=== PATIENT | male | born 1955 | race African-American/Black ===

== ENCOUNTER 2021-09-04 10:07 | Outpatient (REF) | payer OTHER, SELFPAY ==
[2021-09-04 12:56] LABS: Syphilis Screen Nonreactive (Nonreactive)
[2021-09-05 17:37] LABS: Lyme Abs Screen <0.90 index
== END 2021-09-04 10:08 | disposition home or self-care (01) ==
LOC: HO.LAB 10:07
PROVIDERS: PCP Internal Medicine; Visit Provider Psychiatry & Neurology Neurology
DX: M54.16 Radiculopathy, lumbar region (principal)
CPT/HCPCS: 36415; 86617; 86618; 86780

== ENCOUNTER 2021-09-07 08:58 | Day surgery (SDC) | payer OTHER, SELFPAY ==
[2021-09-07] VITALS (8 sets, daily range): BP systolic 131–145; BP diastolic 62–90; PULSE 75–91; RESP 15–16; TEMP 36.6–37; O2SAT 94–95; BMI 31.6
--- NOTE | ~2021-09-07 | FL_ITS ---
EXAMINATION: XR LUMBAR PUNCTURE CLINICAL INFORMATION: Lumbar diverticulitis. COMPARISON: None TECHNIQUE: Following explaining fluoroscopy-guided lumbar puncture procedure, benefits and risk, a written consent was obtained. Patient was placed prone on fluoroscopy table and low back area was cleaned and draped in usual sterile manner. 1% lidocaine was injected overlying the L4-L5 disc level. A 22-gauge spinal needle was then inserted from a left-sided approach intrathecally at the L4-L5 disc level. After observing CSF return, patient was kept patient left lateral decubitus view and opening CSF pressure was obtained. Subsequently fluid was collected in 4 test tubes. Postprocedure stylet was reintroduced and needle withdrawn. Complete hemostasis achieved adjacent. Sterile Band-Aid applied postprocedure. Patient tolerated procedure extremely well. FINDINGS: On a single image of the lumbar spine there are postsurgical hernia repair changes along the lower anterior abdominal wall. Opening CSF pressure measures 15.5 cm of water. Approximately 9.5ml of gas clear CSF fluid collected in 4 test tubes and sent to lab. FLUOROSCOPY TIME: 0.5 DOSE AREA PRODUCT: 8.409 uGy-m2 (microgray-meter squared) FL/FL guided lumbar puncture LP IMPRESSION: Successful fluoroscopy-guided lumbar vertebra performed without immediate complications.
[2021-09-07 09:52] LABS: MANUAL DIFF FLAG NO
[2021-09-07 09:53] LABS: Glucose, Whole Blood 126 mg/dL (60-115)
[2021-09-07 09:55] LABS: Basophils Percent Auto 0.4 % (0-2); Eosinophils Absolute Auto 0.2 X10*3/uL (0.0-0.4); Eosinophils Percent Auto 2.1 % (0-4); Hematocrit 39.4 % (37.0-47.0); Hemoglobin 12.5 g/dl (12.0-16.0); Imm Gran Abs Auto 0.02 X10*3/uL (0.00-0.03); Imm Gran Pct Auto 0.2 % (0.0-0.4); Lymphocytes Absolute Auto 2.4 X10*3/uL (1.2-4.9); Lymphocytes Percent Auto 28.7 % (20-40); Mean Corpuscular HGB Conc 31.7 g/dl (31.0-35.0); Mean Corpuscular Hemoglobin 29.8 pg (27.0-33.0); Mean Platelet Volume 9.9 fL (9.4-12.3); Monocytes Absolute Auto 0.5 X10*3/uL (0.1-1.2); Monocytes Percent Auto 6.1 % (2-11); Neutrophils Absolute Auto 5.1 x10*3/uL (2.0-8.3); Neutrophils Percent Auto 62.5 % (45-73); Platelet Count 196 X10*3/uL (160-400); Red Blood Count 4.19 X10*6/uL (4.20-5.50); Red Cell Distribution Width 13.1 % (11.0-16.0); White Blood Count 8.2 X10*3/uL (4.8-10.8)
[2021-09-07 10:07] LABS: INTERNATIONAL NORM RATIO 1.1 (0.9-1.1); Prothrombin Time 12.6 SEC (9.9-13.0)
[2021-09-07 10:09] LABS: Partial Thromboplastin Time 33.4 SEC (24.1-38.0)
[2021-09-07 13:58] LABS: CSF Appearance Clear, Colorless
[2021-09-07 14:01] LABS: CSF Tube # 1; Glucose CSF 87 mg/dL; Total Protein CSF 75.6 mg/dL (15-45)
[2021-09-07 14:07] LABS: White Blood Cell CSF 2 MM*3
[2021-09-07 14:08] LABS: Appearance CSF CLEAR; CSF Tube # 4; Color CSF COLORLESS; Red Blood Cell CSF 0 MM*3
[2021-09-07 14:11] LABS: CSF Monos 78 %; Lymphocytes CSF 22 %
[2021-09-08 06:43] LABS: Oligoclonal Serum Yes
[2021-09-10 21:32] LABS: Albumin 3.9 g/dL (3.2-4.6); Albumin, CSF 46.3 mg/dL (8.0-42.0); IgG 1180 mg/dL (600-1540); IgG Synthesis Rate -3.6 mg/24 h (-9.9-3.3); IgG, CSF 6.3 mg/dL (0.8-7.7)
== END 2021-09-07 16:11 | disposition home or self-care (01) ==
PROVIDERS: Radiology Diagnostic Radiology; PCP Internal Medicine; Referring Provider Psychiatry & Neurology Neurology; Visit Provider Radiology Diagnostic Radiology
PROC: 009U3ZZ Drainage of Spinal Canal, Percutaneous Approach (ICD-10-PCS; CPT 62270; principal; 2021-09-07 11:00)
DX: M54.16 Radiculopathy, lumbar region (principal); M51.36 Other intervertebral disc degeneration, lumbar region; M54.50 Low back pain, unspecified; M46.90 Unspecified inflammatory spondylopathy, site unspecified; Z87.19 Personal history of other diseases of the digestive system; Z98.890 Other specified postprocedural states; Z79.899 Other long term (current) drug therapy; Z88.8 Allergy status to other drugs, medicaments and biological substances
CPT/HCPCS: 36415; 62328; 82042; 82945; 82947; 83916; 84157; 85025; 85610; 85730; 87015; 87070; 87205; 89051

== ENCOUNTER 2023-12-12 10:39 | Outpatient (AMB) | payer MEDICARE, MEDICAID, SELFPAY ==
--- NOTE | 2023-12-12 10:42 | A.OFFVIS_ITS ---
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 Accompanied by: Self / Same As Patient Allergies morphine Adverse Reaction (Intermediate, Verified 12/12/23 10:46) Vomiting lisinopril [From Zestril] Adverse Reaction (Mild, Verified 12/12/23 10:46) Unknown HPI HPI lumbar stenosis: Details: Patient is a pleasant 68-year-old female with significant history of heart failure with reduced ejection fraction, 4 vessel CABG, paroxysmal AFib, diabetes type 2, bilateral degenerative knee arthritis status post partial meniscectomy on the right, recent ICD placement on 11/29/23, presents today for initial evaluation of intractable low back pain with radiation to her left anterior thigh and anterior oreilly. Denies any recent trauma, injury, or falls. Patient reports she has currently under the care of Dr. Perez at [facility] and is in the process of scheduling L3-L4 ROSALIO. Patient was also referred to our clinic for same injection. She is awaiting cardiac clearance for pausing Eliquis prior to ROSALIO injection. Patient was not sure why she is being referred to both pain clinics and was offered to cancel today's visit but decided to address her axial low back pain. Patient reports long standing history of low back pain which has been worsening for the past 4 months. Patient reports intractable low back pain that is severely limiting her daily activities of daily living, sleep, mobility, functioning and causing debilitating symptoms. Lumbar spine x-ray and MRI reports are noted below and were reviewed with patient today. Patient denies any fever, chills, abdominal pain, bladder or bowel dysfunction or saddle anesthesia. Location: Left lower back radiates down left leg Duration: Chronic pain, worsening for the past 4 months Characteristics of symptom or complaint: Constant aching, radiating, spasming, numbness, tingling, tiring, sore Aggravating or associated factors: Walking, prolonged standing or sitting, bending, lifting or pulling Relieving factors: Rest, activity modifications, heat pad, gabapentin, Tylenol Treatment: Pending L3-L4 ROSALIO w/ Dr. Perez. Patient unable to tolerate PT due to pain [facility] Medical History (Updated 12/12/23 @ 21:39 by LALO Lynn) Allergic rhinitis Benign neoplasm of colon Hyperlipidemia Anosmia Diverticulosis Memory loss Hemorrhoids Degenerative joint disease of knee Hypertension History of abnormal cervical Pap smear History of shingles Lumbar radiculopathy Aortic dilatation Diabetes mellitus type 2 with neurological manifestations Paroxysmal A-fib Heart failure with reduced ejection fraction Surgical History (Updated 12/12/23 @ 21:42 by LALO Lynn) History of closure of ileostomy (~2018) History of implantable cardioverter-defibrillator (ICD) placement (~11/29/23) History of resection of small bowel (~2018) History of hernia repair (~2020) Review of Systems Const All systems reviewed & are unremarkable except as noted in HPI and below Physical Exam Vital Signs: Last Vital Signs Pulse 86 12/12/23 10:47 BP 111/57 L 12/12/23 10:47 General: Appears afebrile. Alert and oriented. Mood and affect appropriate. Follows and participates in conversation appropriately. Respiratory effort is unlabored. No cough. No nasal discharge. Able to transition from sit to stand unassisted. Ambulates with bilaterally normal heel strike and toe off. General: Yes no CVA tenderness Back/Spine/Pelvis Other: Limited exam, unable to perform lumbar ROM due to pain. Back: no CVA tenderness Cervical Spine: cervical ROM normal, cervical muscular tenderness and No Cervical spine tenderness Thoracic/Lumbar Spine: thoracic and lumbar spine normal to inspection, No Thoracic/lumbar spine scar(s), Lasegue's sign positive on the left and localized, paraspinal muscle tenderness on the left greater than right, thoraco- lumbar ROM limited, No thoracic spinal tenderness and lumbar spinal tenderness at L3, at L4 and at L5 Pelvis: no buttock tenderness and no sciatic notch tenderness Sacroiliac joints: bilaterally nontender Results Reviewed Results Reviewed: Assessment & Plan Assessment & Plan (1) Lumbar radiculopathy: Code(s): M54.16 - Radiculopathy, lumbar region Category: Medical (2) Lumbar spinal stenosis: Code(s): M48.061 - Spinal stenosis, lumbar region without neurogenic claudication Category: Medical (3) Intractable low back pain: Code(s): M54.59 - Other low back pain Category: Medical (4) Lumbar spondylosis: Code(s): M47.816 - Spondylosis without myelopathy or radiculopathy, lumbar region Category: Medical Plan Follow-up with Dr. Perez for L3-L4 ROSALIO as planned. Lumbar spine MRI and x-ray results were reviewed with patient today Discussed interventional treatments for axial low back pain. Tentatively schedule bilateral diagnostic L3-L4 L5 medial branch blocks with local and fluoroscopy for potential therapeutic injections or RFA procedure. Expectations, risks and benefits were reviewed. Patient reports her pain today is minimal 08/31 and will notify our office after she receives epidural steroidal injection with Dr. Perez. 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 All questions and concerns have been answered and patient agreed with the plan. Follow-up as needed. Coding Level of Care Code New Pt Level 4 (54781) Diagnoses Lumbar radiculopathy M54.16 Lumbar spinal stenosis M48.061 Intractable low back pain M54.59 Lumbar spondylosis M47.816
[2023-12-12 10:47] VITALS: BP 111/57; PULSE 86
== END 2023-12-12 11:05 | disposition home or self-care (01) ==
PROVIDERS: PCP Internal Medicine; Visit Provider Nurse Practitioner Family
DX: M54.16 Radiculopathy, lumbar region (principal); M48.061 Spinal stenosis, lumbar region without neurogenic claudication; M54.59 Other low back pain; M47.816 Spondylosis without myelopathy or radiculopathy, lumbar region
CPT/HCPCS: 99204

== ENCOUNTER → 2023-12-12 10:39 | Outpatient (BNVA) | payer MEDICARE, MEDICAID, SELFPAY | PROVIDERS: PCP Internal Medicine; Visit Provider Nurse Practitioner Family | DX: M54.16 Radiculopathy, lumbar region (principal); M48.061 Spinal stenosis, lumbar region without neurogenic claudication; M54.59 Other low back pain; M47.816 Spondylosis without myelopathy or radiculopathy, lumbar region | CPT/HCPCS: 99202 ==